=== PATIENT | male | born 1965 | race Caucasian/White ===

== ENCOUNTER 2022-10-13 21:37 | Emergency (ER) | payer SELFPAY ==
[2022-10-13 21:41] VITALS: BP 132/86; PULSE 114; RESP 18; TEMP 98.5; BMI 28.1
[2022-10-13] MEDS ORDERED: predniSONE 20 MG TABLET (UD) PO ONE (23:38)
[2022-10-13] MEDS ORDERED: valACYclovir HCL 500 MG TABLET (FP) PO ONE (23:39)
[2022-10-13] MEDS ORDERED: KETOROLAC TROMETHAMINE 30 MG/1 ML VIAL IM ONE (23:40)
[2022-10-13] MEDS ORDERED: predniSONE 20 MG TABLET (UD) ONE (23:41)
[2022-10-13] MEDS ORDERED: valACYclovir HCL 500 MG TABLET (FP) ONE (23:42)
[2022-10-13] MEDS ORDERED: KETOROLAC TROMETHAMINE 30 MG/1 ML VIAL ONE (23:42)
== END 2022-10-14 03:01 | disposition home or self-care (01) ==
LOC: JER 21:37 → JERFT 21:37 → JER 10-14 03:01
PROC: 3E023GC Introduction of Other Therapeutic Substance into Muscle, Percutaneous Approach (ICD-10-PCS; principal; 2022-10-13)
DX: G51.0 Bell's palsy (principal)
CPT/HCPCS: 70450-TC; 70480-TC; 99284-25